=== PATIENT | male | born 1995 | race Caucasian/White ===

== ENCOUNTER 2024-10-10 14:53 | Outpatient (CLI) | payer OTHER, SELFPAY ==
--- OUTSIDE RECORDS SUMMARY | 2024-10-10 15:28 | XMS_ITS | Encounter Summary ---
Author Organization [facility] Address [address] [place] [address] Care Team Providers Care Draw Press Operator Name Role Phone None, Provider Primary Care Provider Eric Payton MD Primary Care Provider + Encounter Details Date Type Department Care Team (Late st Contact Info) Description 07/11/2017 Abstract [facility] Eric Trinidad MD [address] [facility] [address] [place] [id number] Social History Tobacco Use Types Packs/Day Years Used Date Smoking Tobacco: Never Assessed Sex and Gender Information Value Date Recorded Sex Assigned at Not on file Legal Sex Male 11:20 PM CDT Gender Identity Not on file Sexual Orientation Not on file documented as of this encounter Miscellaneous Notes * Letter - Eric Pinto MD - 07/11/2017 12:00 AM CDT 12 Jul 2017 Flavio Stout [address] [place] [address] Dear Flavio Stout, Thank you for the trust you have placed in [facility] as your health care team. You are a valued patient at our office and we hope you are well. We are concerned about your health and noticed that you did not keep your last scheduled appointment on 07/11/2017. If your appointment has not been rescheduled, please call the office at to reschedule your appointment as soon as possible. As you are aware, we are dedicated to caring for the whole patient, not just treating an illness. When we schedule appointments, we set aside time and professional resources to meet the individual needs of our patients, including time for one-on-one consultation. When a patient does not come to an appointment or cancels the appointment without sufficient notice, our health care team is not able to take time needed to care for another patient. Cancelling within at least 24 hours of your appointment allows us to prepare our schedule for other patients who need timely care. Please be aware, per our organization's no-show policy, if at least 24 hours' notice is not given two times in one year, the practice will impose a $25 no- show fee. We understand there are occasions when a patient must miss an appointment due to unforeseen circumstances. In this event, please call our office and cancel your appointment as soon as you are able. This allows our staff to schedule another patient in need of care. We are committed to providing you the best care possible. We hope to hear from you soon. Sincerely, [facility] cc: Patient Medical Record EASER documented in this encounter Plan of Treatment Not on file documented as of this encounter Visit Diagnoses Not on filedocumented in this encounter Care Teams Draw Press Operator Relationship Specialty Start Date End Date None, Provider, PCP - General 09/10/18 04/25/19 Eric Pinto MD [address] [facility] [address] [place] [id number] PCP - General FAMILY PRACTICE 04/26/19 documented as of this encounter
--- OUTSIDE RECORDS SUMMARY | 2024-10-10 15:28 | XMS_ITS | Clinical Summary ---
Author Organization [facility] Address [address] [place] [address] Phone Care Team Providers Care Capacitor Pack Press Operator Name Role Phone Provider, None Primary Care Provider Unavailabl e Medications methylPREDNISol one (Medrol) 4 MG Tablet Therapy PackIndications :Facial swelling,Bee sting, accidental or unintentional, initial encounter Use as per instructions on package. 21 Tab 0 Active Active Problems No known active problems Social History Tobacco Use Types Packs/Day Years Used Date Smoking Tobacco: Never Smokeless Tobacco: Never Sex and Gender Information Value Date Recorded Sex Assigned at Not on file Legal Sex Male 10:43 AM CDT Gender Identity Not on file Sexual Orientation Not on file Last Filed Vital Signs Vital Sign Reading Time Taken Comments Blood Pressure 116/68 12/12/2019 10:52 AM CDT Pulse 79 12/12/2019 10:52 AM CDT Temperature 36.9 C (98.5 F) 12/12/2019 10:52 AM CDT Respiratory Rate 16 12/12/2019 10:52 AM CDT Oxygen Saturation 98% 12/12/2019 10:52 AM CDT Inhaled Oxygen Concentration - - Weight 74.8 kg (165 lb) 12/12/2019 10:52 AM CDT Height 175.3 cm (5' 9) 12/12/2019 10:52 AM CDT Body Mass Index 24.37 12/12/2019 10:52 AM CDT Plan of Treatment Health Maintenance Due Date Last Done Comments Hepatitis C Virus (HCV) Screening 1994 Human Papillomavirus (HPV) Immunization (2 - Male 3-dose series) 11/01/2014 10/04/2014 SARS-COV-2 Immunization ( season) 2023 Influenza Immunization (#1) 2024 Respiratory Syncytial Virus (RSV) Immunization (Adult) (1 - 1-dose 75+ series) 2069 Hepatitis B Immunization Completed 996, 01/07/1995, 1994 DTaP/Tdap/Td Immunization Discontinued 2017, 06/26/1996, 03/09/1996, Additional history exists TdaP Immunization Completed 10/30/2017 Meningococcal Immunization (ACWY) Aged Out No longer eligible based on patient's age to complete this topic Pneumococcal Immunization Combined Aged Out No longer eligible based on patient's age to complete this topic Rotavirus Immunization Aged Out No lo nger eligible based on patient's age to complete [place] [address] [place] [id number] [facility] Care Teams Capacitor Pack Press Operator Relationship Specialty Start Date End Date Provider, None [place] PCP - General 12/12/19
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
[2024-10-11 19:09] LABS: Cocaine (Metab.), Urine Negative ng/mL (Cutoff=300)
== END 2024-10-10 14:54 | disposition home or self-care (01) ==
LOC: ANHLAB 14:56
PROVIDERS: PCP Nurse Practitioner Family; Visit Provider Nurse Practitioner Family
DX: Z13.89 Encounter for screening for other disorder (principal)
CPT/HCPCS: 80307